=== PATIENT | male | born 1995 | race Caucasian/White ===

== ENCOUNTER 2024-02-05 06:12 | Day surgery (SDC) | payer BC ==
[~2024-02-05 06:12] MED LIST: LIDOCAINE 1% (10MG/ML) FOR IV START INTRADERMA PRN
[2024-02-05] MEDS: IV FLUID CONTINUATION 1,000 ML IV ONE (06:36)
[2024-02-05] MEDS: DEXAMETHASONE SOD PHOSPHATE 4 MG/ML 1 ML VIAL IV ONE (06:59)
[2024-02-05] MEDS: ONDANSETRON 4 MG/2 ML VIAL IVP ONE (06:59)
[2024-02-05] MEDS: FAMOTIDINE 20 MG/2 ML VIAL IV PRN (06:59)
[2024-02-05] MEDS: LACTATED RINGERS 1,000 ML IV SCH (06:59)
[2024-02-05] MEDS ORDERED: MIDAZOLAM 2 MG/2 ML VIAL IV PRN (07:00)
[2024-02-05] MEDS ORDERED: HYDROmorphone 0.5 MG/0.5 ML SYRINGE IVP PRN (07:00)
[2024-02-05] MEDS ORDERED: PROPOFOL 10 MG/ML 20 ML VIAL IV ONE (07:20)
[2024-02-05] MEDS ORDERED: fentaNYL (PF) 50 MCG/ML 2 ML AMP ONE (07:20)
[2024-02-05] MEDS ORDERED: MIDAZOLAM 2 MG/2 ML VIAL ONE (07:20)
[2024-02-05] MEDS ORDERED: SUCCINYLCHOLINE CHLORIDE 200 MG/10 ML VIAL IV ONE (07:20)
[2024-02-05] MEDS ORDERED: LIDOCAINE 1% INJ 10MG/ML (20 ML MDV) ONE (07:20)
[2024-02-05] MEDS: LIDOCAINE 1%-EPI 1:100,000 20 ML VIAL SQ ONE ×2 (07:47)
--- NOTE | 2024-02-05 08:18 | P.OP ---
Date of Procedure: 02/05/24 Preoperative Diagnosis: submental nodule Postoperative Diagnosis: same Procedure(s) Performed: excision submental nodule Anesthesia: MADDIEA Surgeon: Jhony Faustni Estimated Blood Loss (ml): 2 Pathology: other (submental nodule) Condition: stable Disposition: PACU Indications for Procedure: 28-year-old white male with a persistent submental nodule. This has not improved with conservative management. This was too small for needle biopsy Operative Findings: approximate 1 cm submental nodule which appeared grossly consistent with a lipoma Description of Procedure: the patient was brought in the operative suite and placed in a supine position. Patient underwent induction of general anesthesia with oral endotracheal intubation without difficulty. The patient was prepped and draped in usual aseptic fashion. 1% lidocaine with 1-1000 epinephrine was infused subcutaneously. This was allowed to work for 7 minutes for vasoconstrictive effect. An approximate 2.5 cm incision was then made overlying the submental nodule just to the right of midline. This carried sharply through the skin and subcutaneous tissue as well as platysma layer. There was an approximate 1 cm nodule visualized and palpated and this appeared most consistent with a lipoma. This was well encapsulated. This was excised grossly entirely. The wound was then further explored including deeper down to the deep muscular layer which was intact and no further lesions were noted visually or palpably. Hemostasis was noted to be good. The platysma and subcutaneous layers were closed with inverted interrupted 4-0 Vicryl suture and skin closed with simple interrupted 4-0 Prolene suture. Bacitracin ointment and sterile dressings were placed. The patient was allowed to emerge from general anesthesia having tolerated procedure well was excised in the operating suite and transferred postoperative recovery area in satisfactory condition.
[2024-02-05 08:28] VITALS: TEMP 98
[2024-02-05 08:38] VITALS: RESP 16
[2024-02-05 09:18] VITALS: BP 115/67; PULSE 67
== END 2024-02-05 09:32 | disposition home or self-care (01) ==
LOC: OR 06:12
PROVIDERS: ATTEND Otolaryngology
DX: D23.4 Other benign neoplasm of skin of scalp and neck (principal); K21.9 Gastro-esophageal reflux disease without esophagitis; Z88.0 Allergy status to penicillin; F17.290 Nicotine dependence, other tobacco product, uncomplicated; Z79.899 Other long term (current) drug therapy
CPT/HCPCS: 88307; 11423; J2250; J0330; J1100; J0690; J2405; J2001; J3010; J3490; J2704